=== PATIENT | female | born 1940 | race Caucasian/White ===

== ENCOUNTER → 2016-09-14 | Outpatient (CLI) | payer MEDICARE, BC ==
[~2016-09-14] MED LIST: ASPIR-LOW81 MG PO; ATENOLOL; ATORVASTATIN; CALCIUM CARBON500 M1 PO; FOSAMAX PO
== END ==
LOC: MC.RAD 10:00
DX: Z12.31 Encounter for screening mammogram for malignant neoplasm of breast (principal); R92.1 Mammographic calcification found on diagnostic imaging of breast

== ENCOUNTER 2017-05-11 11:34 | Day surgery (SDC) | payer MEDICARE, BC ==
[~2017-05-11] VITALS: Ht 162.6 cm; Wt 64.4 kg
[~2017-05-11 11:34] MED LIST changes: -ASPIR-LOW81 MG PO; +ASPIRIN 81M81 MG/TA2 PO; -ATORVASTATIN; +FOSAMAX 70MG TA70 MG PO; -FOSAMAX PO; +LIPITOR20 MG PO
[2017-05-11] MEDS ORDERED: SYNTHROID0.075 MG/T PO (11:53)
[2017-05-11] MEDS ORDERED: TRANDATE 100MG100 MG PO (11:53)
[2017-05-11] MEDS ORDERED: LUTEIN20 M1 PO (11:54)
[2017-05-11] MEDS ORDERED: XALATAN EYE DROPS OU (11:57)
[2017-05-11] MEDS ORDERED: ISTALOL 2.5 ML2.5 ML OU (11:58)
[2017-05-11] MEDS ORDERED: OMEGA-3 1000 MG1 CAP PO (11:58)
[2017-05-11] MEDS ORDERED: ALPHAG-P-0.1-5ML OU (11:59)
[2017-05-11] MEDS ORDERED: CALCIUM CARBON650 M2 PO (11:59)
[2017-05-11 12:13] VITALS: BP 142/71; PULSE 64; TEMP 97.6
[2017-05-11 13:25] VITALS: BP 125/64; PULSE 68; TEMP 97.5
[2017-05-11 13:40] VITALS: BP 123/63; PULSE 68
[2017-05-11 13:53] VITALS: BP 123/64; PULSE 66
== END 2017-05-11 14:15 | disposition home or self-care (01) ==
LOC: SDCO 11:34
DX: K57.30 Diverticulosis of large intestine without perforation or abscess without bleeding (principal); K64.0 First degree hemorrhoids; I34.1 Nonrheumatic mitral (valve) prolapse; E03.9 Hypothyroidism, unspecified; E78.00 Pure hypercholesterolemia, unspecified; M81.0 Age-related osteoporosis without current pathological fracture
CPT/HCPCS: OP; J2250; J3010; J7030

== ENCOUNTER → 2018-12-14 | Outpatient (CLI) | payer MEDICARE, BC ==
[~2018-12-14] MED LIST changes: +ALPHAG-P-0.1-5ML OU; +CALCIUM CARBON650 M2 PO; +ISTALOL 2.5 ML2.5 ML OU; +LUTEIN20 M1 PO; +OMEGA-3 1000 MG1 CAP PO; +SYNTHROID0.075 MG/T PO; +TRANDATE 100MG100 MG PO; +XALATAN EYE DROPS OU
== END ==
LOC: MC.RAD 10:00
DX: Z12.31 Encounter for screening mammogram for malignant neoplasm of breast (principal)

== ENCOUNTER → 2020-03-01 | Outpatient (CLI) | payer MEDICARE, BC | LOC: MC.RAD 10:30 | DX: Z12.31 Encounter for screening mammogram for malignant neoplasm of breast (principal) ==

== ENCOUNTER → 2021-03-27 | Outpatient (CLI) | payer MEDICARE, BC | LOC: MC.RAD 08:10 | DX: Z12.31 Encounter for screening mammogram for malignant neoplasm of breast (principal) ==

== ENCOUNTER → 2021-11-19 | Outpatient (CLI) | payer MEDICARE, BC | LOC: COL.RAD 10:03 | DX: M25.552 Pain in left hip (principal) | CPT/HCPCS: J3301; Q9967 ==

== ENCOUNTER → 2022-04-02 | Outpatient (CLI) | payer MEDICARE, BC | LOC: MC.RAD 11:29 | DX: Z12.31 Encounter for screening mammogram for malignant neoplasm of breast (principal) ==